=== PATIENT | female | born 1965 | race Two or more races ===

== ENCOUNTER → 2020-05-04 | Outpatient (CLI) | payer OTHER | END | disposition home or self-care (01) | LOC: ECT 11:48 | DX: F31.81 Bipolar II disorder (principal); F41.1 Generalized anxiety disorder; F43.10 Post-traumatic stress disorder, unspecified; X58.XXXA Exposure to other specified factors, initial encounter; Y92.9 Unspecified place or not applicable; Z91.5 Personal history of self-harm; Z88.8 Allergy status to other drugs, medicaments and biological substances; Z72.89 Other problems related to lifestyle ==